=== PATIENT | male | born 1965 | race Caucasian/White ===

== ENCOUNTER 2019-06-19 21:30 | Emergency (ER) | payer OTHER ==
[~2019-06-19] VITALS: Ht 175.3 cm; Wt 80.1 kg
[2019-06-19 22:10] VITALS: BP 123/85
== END 2019-06-19 22:36 | disposition left against medical advice (07) ==
LOC: ER 21:30
DX: S40.261A Insect bite (nonvenomous) of right shoulder, initial encounter (principal); Z53.21 Procedure and treatment not carried out due to patient leaving prior to being seen by health care provider; W57.XXXA Bitten or stung by nonvenomous insect and other nonvenomous arthropods, initial encounter; Y93.89 Activity, other specified; Y99.8 Other external cause status; Y92.89 Other specified places as the place of occurrence of the external cause

== ENCOUNTER 2024-09-18 10:44 | Emergency (ER) | payer OTHER ==
[~2024-09-18] VITALS: Ht 177.8 cm; Wt 58.4 kg
[2024-09-18 11:26] VITALS: BP 117/81; PULSE 104; RESP 16; O2SAT 98
[2024-09-18] MEDS ORDERED: KETOROLAC TROMETH 30 MG/ML 1ML VIAL IV ONE (12:00)
[2024-09-18] MEDS ORDERED: PIPERACILLIN-TAZO 4.5GM 100 ML IV ONE (12:00)
--- NOTE | 2024-09-18 12:22 | ED.PDOC ---
Musculoskeletal HPI Comments A 59 year old male presents to the ED with a chief complaint of RT hand swelling onset 2 days go. Patient states he was at work when he noticed his RT hand was dry with cracks and 2 days ago noticed it was swollen, painful, draining and bleeding. Noticed his RT hand 4th and 5th digit were worse. Rates pain a 6/10. His last Tetanus vaccine was about 1 year ago. Patient denies any past medical history. No other symptoms or modifying factors present at this time. Chief Complaint: Upper Extremity Time Seen by MD: 11:48 Reviewed Notes: Medications, Allergies Information Source: Patient, Friend Mode of Arrival: Ambulatory Location: Right Extremity Location: Finger 4, Hand Timing: Days Prehospital treatment: None Severity: Moderate Pain: None Hand Dominance: Right Mechanism: Unknown Circumstances: Work Related Symptoms: Swelling, Erythema DVT Risk Factors: NONE Last Tetanus: UTD Associated signs and symptoms: Swelling, Hand pain Past Medical History PAST MEDICAL HISTORY: Denies Surgical History: Denies all surgeries Family History Family History: Reviewed,noncontributory to illness, No family hx of Cancer, No family hx of DM, No family hx of Heart dolores, No family hx of HTN, No family hx ofKidney dolores, No family hx of Liver dolores, No family hx of Lung dolores, No family hx of Stroke Social History Smoker: Non-Smoker Alcohol: Denies ETOH Use Drugs: Denies Drug Use Lives In: Home Constitutional: denies: chills, diaphoresis, fatigue, fever, malaise, sweats, weakness, others EENTM: denies: blurred vision, double vision, ear bleeding, ear discharge, ear drainage, ear pain, ear ringing, eye pain, eye redness, hearing loss, mouth pain, mouth swelling, nasal discharge, nose bleeding, nose congestion, nose pain, photophobia, tearing, throat pain, throat swelling, voice changes, others Respiratory: denies: cough, hemoptysis, orthopnea, SOB at rest, shortness of breath, SOB with excertion, stridor, wheezing, others Cardiovascular: denies: chest pain, dizzy spells, diaphoresis, Dyspnea on exertion, edema, irregular heart beat, left arm pain, lightheadedness, palpitations, PND, syncope, others Gastrointestinal: denies: abdomen distended, abdominal pain, blood streaked bowels, constipated, diarrhea, dysphagia, difficulty swallowing, hematemesis, melena, nausea, poor appetite, poor fluid intake, rectal bleeding, rectal pain, vomiting, others Genitourinary: denies: burning, dysuria, flank pain, frequency, hematuria, incontinence, penile discharge, penile sore, pain, testicle pain, testicle swelling, urgency, others Neurological: denies: dizziness, fainting, headache, left sided numbness, left sided weakness, numbness, paresthesia, pre-existing deficit, right sided numbness, right sided weakness, seizure, speech problems, tingling, tremors, weakness, others Musculoskeletal: reports: others (RT hand swelling, open wounds RT hand, RT hand pain); denies: back pain, gout, joint pain, joint swelling, muscle pain, muscle stiffness, neck pain Integumetry: reports: dryness, wounds; denies: bruises, change in color, change in hair/nails, laceration, lesions, lumps, rash, others Allergic/Immunocompromised: denies: Difficulty Healing, Frequent Infections, Hives, Itching, others Hematologic/Lymphatic: denies: anemia, blood clots, easy bleeding, easy bru ising, swollen glands, others Endocrine: denies: excessive hunger, excessive sweating, excessive thirst, e xcessive urination, flushing, intolerance to cold, intolerance to heat, unexplained weight gain, unexplained weight loss, others Psychiatric: denies: anxiety, bipolar disorder, depression, hopeless, panic disorder, schizophrenia, sleepless, suicidal, others All Other Systems: Reviewed and Negative Physical Exam General Appearance: No Apparent Distress HEENT: Other (Dry mucous membranes, no facial asymmetry, pupils symmetric) Neck: Full Range of Motion, Normal Inspection Respiratory: Lungs Clear, No Accessory Muscle Use, No Respiratory Distress, Normal Breath Sounds Cardiovascular: No JVD, Regular Rate/Rhythm Breast Exam: Deferred Gastrointestinal: Non Tender, Soft Genitalia: Deferred Pelvic: Deferred Rectal: Deferred Extremities: Normal range of motion, No pedal edema, Swelling, Tender (Right hand erythema, soft tissue swelling and tenderness greatest at the medial aspect and involving the 4th and 5th fingers) Neurologic: Alert (Oriented x4), Other (Ambulatory without difficulty, no gross focal deficit) Cerebellar Function: NOT DONE Reflexes: NOT DONE Skin: Dry, Warm, Other (Right hand erythema, edema and tenderness of the medial aspect and involving the 4th and 5th fingers. Open approximate 2 x 1.5 cm wound medial aspect base of the 4th finger, open subcentimeter wound lateral aspect base of finger. Yellow discharge from wounds) Lymphatic: NOT DONE Was a procedure done? Was a procedure done?: No Differential Diagnosis EXT Differential Diagnosis: Cellulitis, Septic Other Differential Diagnosis Abscess, osteomyelitis, among others X-Ray, Labs, Meds, VS Vital Signs Date Time Temp Pulse Resp B/P (MAP) Pulse Ox O2 Delivery O2 Flow Rate FiO2 09/18/24 11:26 97.9 104 16 117/81 (93) 98 X-Ray, Labs, Meds, VS Comment 59-year-old male with no significant past medical history complaining of right hand pain, redness and swelling after noting his skin was cracked Vitals remarkable for heart rate 104 Exam remarkable for draining open wounds on the 4th and 5th fingers with surrounding erythema, edema, tenderness and yellow wound discharge Rhythm strip independently interpreted by me: Sinus tach, rate 104, no ectopy. Right hand x-rays ordered. CBC, basic metabolic panel, lactate ordered. the following medications were ordered for the patient: Zosyn 4.5 g IV, Toradol 30 mg IV Plan was to admit the patient for IV antibiotics. Patient eloped prior to initiation of studies and completion of treatment. Time of 1ST Reevaluation: 12:18 Reevaluation 1ST: Unchanged Patient Education/Counseling: Diagnosis, Treatment, Prognosis Family Education/Counseling: Diagnosis, Treatment, Prognosis Additional Information HI Data VOL/Complexity Ordered tests: LAB, XY, GILL, PHA reviewed results: CBC, BMP, LA, WOUND CULTURE independent historian: friend Interpreted results: XY Discuss tx/ results: patient, patient's friend, medical personnel Departure 1 Departure Time of Disposition: 12:58 Impression: Primary Impression: Cellulitis of hand, right Disposition: 07 LEFT AWOL/ELOPED Condition: Fair Discharged With: Friend Critical Care Note Critical Care Time?: No Stability Stability form required: No Heart Score Heart Score: Heart Score Response (Comments) Value History N/A 0 EKG N/A 0 Age N/A 0 Risk Factors N/A 0 Troponin N/A 0 Total 0 I personally scribed for CIRO NIELSEN MD ([email or web address]) on 09/18/24 at 12:22. Electronically submitted by Dilma Villa ([email or web address]). I personally scribed for CIRO NIELSEN MD ([email or web address]) on 09/18/24 at 12:37. Electronically submitted by Dilma Villa ([email or web address]). CIRO NIELSEN MD Sep 18, 2024 12:22
== END 2024-09-18 13:00 | disposition left against medical advice (07) ==
LOC: ER 10:44
DX: L03.113 Cellulitis of right upper limb (principal)